=== PATIENT | male | born 1975 | race Caucasian/White ===

== ENCOUNTER 2019-06-02 15:51 | Emergency (ER) | payer BC, SELFPAY ==
--- NOTE | 2019-06-02 16:34 | RAD REPORT ---
EXAM DESCRIPTION: CT - Thorax Wo Con CLINICAL HISTORY: Chest pain PAIN COMPARISON: No comparisons FINDINGS: The lungs are clear. No pleural thickening or pleural effusion. No pneumothorax. No axillary, mediastinal or hilar adenopathy. No concerning bony finding. No gross upper abdominal finding. All CT scans are performed using dose optimization technique as appropriate and may include automated exposure control or mA/KV adjustment according to patient size. IMPRESSION: No acute abnormality detected.
--- NOTE | 2019-06-02 16:42 | EDPHYS ---
Physician Documentation [facility] Name: Zachary Parker Jr Age: 43 yrs Sex: Male : 1975 Arrival Date: 06/02/2019 Time: 15:53 Bed 18 Private MD: ED Physician Kurt Crockett HPI: 06/01 16:16 This 43 yrs old Male presents to ER via Ambulatory with complaints of Finger jr8 injury, chest injury. 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 Sparing partner fell on left rib cage. [place] multiple pops. Has had pain to chest with shortness of breath since incident. Stated that he reduced finger before he arrived to ED and feels much better there . Onset: The symptoms/episode began/occurred acutely, today. Severity of symptoms: At their worst the symptoms were moderate in the emergency department the symptoms are unchanged. The patient has not experienced similar symptoms in the past. The patient has not recently seen a physician. Historical: - Allergies: 16:17 No Known Allergies; - Home Meds: 16:17 Metformin Oral [Active]; pravastatin oral oral [Active]; Amitriptyline Oral [Active]; - PMHx: 16:17 Diabetes - NIDDM; High Cholesterol; Hypertension; PTSD; Restless Leg; - Immunization history:: Adult Immunizations up to date. - Social history:: Smoking status: Patient/guardian denies using. ROS: 16:16 Eyes: Negative for injury, pain, redness, and discharge, ENT: Negative for injury, jr8 pain, and discharge, Neck: Negative for injury, pain, and swelling, Abdomen/GI: Negative for abdominal pain, nausea, vomiting, diarrhea, and constipation, Back: Negative for injury and pain, Skin: Negative for injury, rash, and discoloration, Neuro: Negative for headache, weakness, numbness, tingling, and seizure. 16:16 Cardiovascular: Positive for chest pain, with movement, Negative for edema, orthopnea, palpitations, paroxysmal nocturnal dyspnea. 16:16 Respiratory: Positive for shortness of breath, Negative for cough, dyspnea on exertion, sputum production, wheezing. 16:16 MS/extremity: Positive for deformity, of the right 5th digit . Exam: 16:16 Eyes: Pupils equal round and reactive to light, extra-ocular motions intact. Lids and jr8 lashes normal. Conjunctiva and sclera are non-icteric and not injected. Cornea within normal limits. Periorbital areas with no swelling, redness, or edema. ENT: Nares patent. No nasal discharge, no septal abnormalities noted. Tympanic membranes are normal and external auditory canals are clear. Oropharynx with no redness, swelling, or masses, exudates, or evidence of obstruction, uvula midline. Mucous membranes moist. Neck: Trachea midline, no thyromegaly or masses palpated, and no cervical lymphadenopathy. Supple, full range of motion without nuchal rigidity, or vertebral point tenderness. No Meningismus. Cardiovascular: Regular rate and rhythm with a normal S1 and S2. No gallops, murmurs, or rubs. Normal PMI, no JVD. No pulse deficits. Respiratory: Lungs have equal breath sounds bilaterally, clear to auscultation and percussion. No rales, rhonchi or wheezes noted. No increased work of breathing, no retractions or nasal flaring. Abdomen/GI: Soft, non-tender, with normal bowel sounds. No distension or tympany. No guarding or rebound. No evidence of tenderness throughout. Back: No spinal tenderness. No costovertebral tenderness. Full range of motion. Skin: Warm, dry with normal turgor. Normal color with no rashes, no lesions, and no evidence of cellulitis. MS/ Extremity: Pulses equal, no cyanosis. Neurovascular intact. Full, normal range of motion. Neuro: Awake and alert, GCS 15, oriented to person, place, time, and situation. Cranial nerves II-XII grossly intact. Motor strength 5/5 in all extremities. Sensory grossly intact. Cerebellar exam normal. Normal gait. 16:16 Chest/axilla: Inspection: normal, Palpation: crepitus, is not appreciated, tenderness, that is moderate, of the left lateral anterior chest, that totally reproduces the patient's complaints. Vital Signs: 16:10 BP 157 / 94; Pulse 104; Resp 18; Temp 98.6; Pulse Ox 94% ; Weight 120.2 kg; Height 5 wh ft. 9 in. (175.26 cm); Pain 7/10; 16:10 Body Mass Index 39.13 (120.20 kg, 175.26 cm) MDM: 15:57 Patient medically screened. rn 16:41 Data reviewed: vital signs, nurses notes, radiologic studies, CT scan. Data jr8 interpreted: Pulse oximetry: on room air is 94 %. Interpretation: acceptable. Counseling: I had a detailed discussion with the patient and/or guardian regarding: the historical points, exam findings, and any diagnostic results supporting the discharge/admit diagnosis, radiology results, the need for outpatient follow up, a family practitioner, to return to the emergency department if symptoms worsen or persist or if there are any questions or concerns that arise at home. 06/01 16:04 Order name: CT Chest Wo Con; Complete Time: 17:24 jr8 Administered Medications: 16:59 Drug: TORadol 30 mg Route: IM; Site: right deltoid; 17:09 Follow up: Response: No adverse reaction; Pain is decreased Disposition: 17:19 Co-signature as Attending Physician, Kurt Crockett MD. rn Disposition: 06/02/19 16:41 Discharged to Home. Impression: Chest Wall Contusion . - Condition is Stable. - Discharge Instructions: Chest Wall Pain, Blunt Chest Trauma. - Medication Reconciliation Form, Thank You Letter, Antibiotic Education, Prescription Opioid Use form. - Follow up: Private Physician; When: As needed; Reason: Recheck today's complaints, Continuance of care, Re-evaluation by your physician. - Problem is new. - Symptoms have improved. Signatures: Dispatcher [employer] EDKurt Cline MD MD rn Roszak, Josh, PA PA jr8 Magalisember Zanateresa Corrections: (The following items were deleted from the chart) 17: 16:41 06/02/2019 16:41 Discharged to Home. Impression: Chest Wall Contusion . Condition wh is Stable. Forms are Medication Reconciliation Form, Thank You Letter, Antibiotic Education, Prescription Opioid Use. Follow up: Private Physician; When: As needed; Reason: Recheck today's complaints, Continuance of care, Re-evaluation by your physician. Problem is new. Symptoms have improved. jr8
--- NOTE | 2019-06-02 16:42 | ER ---
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 Pt had right 5th finger dislocation but was able to manipulate for reduction. Pt C/O left rib pain that is sharp and exacerbated by breathing. Coronavirus screen: The patient has NOT traveled to a country currently being monitored by the [facility] within the last 14 days. Ebola Screen: Patient negative for fever greater than or equal to 101.5 degrees Fahrenheit, and additional compatible Ebola Virus Disease symptoms Patient denies exposure to infectious person. Initial Sepsis Screen: Does the patient meet any 2 criteria? HR > 90 bpm. Does the patient have a suspected source of infection? No. Patient's initial sepsis screen is negative. Risk Assessment: Do you want to hurt yourself or someone else? Patient reports no desire to harm self or others. 16:10 Method Of Arrival: Ambulatory 16:10 Acuity: DOROTHEA 4 16:19 Onset of symptoms was June 02, 2019. Historical: - Allergies: 16:17 No Known Allergies; - Home Meds: 16:17 Metformin Oral [Active]; pravastatin oral oral [Active]; Amitriptyline Oral [Active]; - PMHx: 16:17 Diabetes - NIDDM; High Cholesterol; Hypertension; PTSD; Restless Leg; - Immunization history:: Adult Immunizations up to date. - Social history:: Smoking status: Patient/guardian denies using. Screenin:14 Abuse screen: Denies threats or abuse. Denies injuries from another. Nutritional screening: No deficits noted. Tuberculosis screening: No symptoms or risk factors identified. Fall Risk None identified. Assessment: 16:14 General: Appears in no apparent distress. Behavior is calm, cooperative, appropriate for age. Pain: Complains of pain in left lateral anterior chest Pain does not radiate. Pain currently is 8 out of 10 on a pain scale. Quality of pain is described as sharp, Pain began 1 hour ago. Neuro: Level of Consciousness is awake, alert, obeys commands, Oriented to person, place, time, situation, Appropriate for age. Cardiovascular: Heart tones S1 S2. Respiratory: Airway is patent Respiratory effort is even, unlabored, Breath sounds are clear bilaterally. GI: Abdomen is flat, non-distended. : No signs and/or symptoms were reported regarding the genitourinary system. EENT: No signs and/or symptoms were reported regarding the EENT system. Derm: Skin is intact, is healthy with good turgor, Skin is pink, warm \T\ dry. normal. Musculoskeletal: Circulation, motion, and sensation intact. Vital Signs: 16:10 BP 157 / 94; Pulse 104; Resp 18; Temp 98.6; Pulse Ox 94% ; Weight 120.2 kg; Height 5 wh ft. 9 in. (175.26 cm); Pain 7/10; 16:10 Body Mass Index 39.13 (120.20 kg, 175.26 cm) ED Course: 15:53 Patient arrived in ED. ag5 15:56 Srini Jose is Primary Nurse. 15:57 Kurt Crockett MD is Attending Physician. rn 15:58 Chevy Du PA is PHCP. [facility] 16:14 Triage completed. 16:15 Arm band placed on right wrist. 16:19 Patient has correct armband on for positive identification. Bed in low position. Call light in reach. Side rails up X 1. Pulse ox on. NIBP on. 16:24 CT Chest Wo Con In Process Unspecified. EDMS 16:59 No provider procedures requiring assistance completed. Patient did not have IV access during this emergency room visit. Administered Medications: 16:59 Drug: TORadol 30 mg Route: IM; Site: right deltoid; 17:09 Follow up: Response: No adverse reaction; Pain is decreased Outcome: 16:41 Discharge ordered by MD. bowden 16:59 Discharged to home ambulatory. 16:59 Condition: stable 16:59 Discharge instructions given to patient, Instructed on discharge instructions, follow up and referral plans. POC Demonstrated understanding of instructions, follow-up care, POC 17:10 Patient left the ED. Signatures: Dispatcher [employer] EDMS Kurt Crockett MD MD rn Roszak, Josh, PA PA jr8 [place], Winsy wh Fabian, Soo ag5
[2019-06-02] MEDS ORDERED: KETOROLAC 30 MG/ML INJ ONE (17:00)
[2019-06-02 17:29] VITALS: BP 157/94; TEMP 98.6; O2SAT 94
== END 2019-06-02 17:10 | disposition home or self-care (01) ==
LOC: ER 15:51
DX: S20.212A Contusion of left front wall of thorax, initial encounter (principal); W18.30XA Fall on same level, unspecified, initial encounter; Y93.89 Activity, other specified; Y92.9 Unspecified place or not applicable; Y99.0 Civilian activity done for income or pay
CPT/HCPCS: 71250; 96372; 99283

== ENCOUNTER 2019-07-17 15:02 | Emergency (ER) | payer SELFPAY ==
--- NOTE | 2019-07-17 16:19 | RAD REPORT ---
EXAM DESCRIPTION: CT - Head Brain Wo Cont - 07/17/2019 3:56 pm CLINICAL HISTORY: HEADACHE, hypertension COMPARISON: No comparisons TECHNIQUE: Axial 5 mm thick images of the head were obtained without IV contrast. All CT scans are performed using dose optimization technique as appropriate and may include automated exposure control or mA/KV adjustment according to patient size. FINDINGS: No intracranial hemorrhage, mass, edema or shift of mid-line structures. No acute infarcti on changes seen. No abnormal extra-axial fluid collections. Ventricles are normal. Mastoid air cells and visualized portions of the paranasal sinuses are clear. No acute bony findings. IMPRESSION: Negative non-contrast CT head examination.
[2019-07-17] MEDS ORDERED: METOCLOPRAMIDE 10 MG/2mL INJ ONE (16:45)
[2019-07-17] MEDS ORDERED: KETOROLAC 30 MG/ML INJ ONE (16:45)
[2019-07-17] MEDS ORDERED: DIPHENHYDRAMINE 50 MG/ML VIAL ONE (16:45)
[2019-07-17] MEDS ORDERED: NA CHLORIDE 0.9% 1,000 ML ONE (16:46)
--- NOTE | 2019-07-17 17:35 | ER ---
Nurse's Notes [facility] Name: Zachary Parker Jr Age: 43 yrs Sex: Male : 1975 Arrival Date: 07/17/2019 Time: 15:04 Bed 18 Private MD: Diagnosis: Essential (primary) hypertension;Headache Presentation: 07/16 15:05 Chief complaint: Patient states: HTN x 2 days ago that has been higher than normal. sv Reports SBP 200s. Coronavirus screen: Proceed with normal triage. Patient denies a cough. Patient denies shortness of breath or difficulty breathing. Patient denies measured and/or subjective temperature greater than 100.4F prior to today's visit. Patient denies travel on a cruise ship or to a country the [facility] currently lists as an affected area. Patient denies contact with known and/or suspected case of COVID-19. Ebola Screen: No symptoms or risks identified at this time. Risk Assessment: Do you want to hurt yourself or someone else? Patient reports no desire to harm self or others. Onset of symptoms was July 15, 2019. 15:05 Method Of Arrival: Ambulatory sv 15:05 Acuity: DOROTHEA 4 sv 15:07 Initial Sepsis Screen: Does the patient meet any 2 criteria? HR > 90 bpm. No. Patient's sv initial sepsis screen is negative. Does the patient have a suspected source of infection? No. Patient's initial sepsis screen is negative. Triage Assessment: 15:09 General: Appears in no apparent distress. comfortable, Behavior is calm, cooperative, sv appropriate for age. Pain: Denies pain. Neuro: Level of Consciousness is awake, alert, obeys commands, Oriented to person, place, time, situation, Gait is steady. Respiratory: Respiratory effort is even, unlabored. Historical: - Allergies: 15:07 No Known Allergies; sv - Home Meds: 15:07 Amitriptyline Oral [Active]; Metformin Oral [Active]; Lisinopril Oral [Active]; sv - PMHx: 15:07 Diabetes - NIDDM; High Cholesterol; Hypertension; PTSD; restless leg; sv - Immunization history:: Flu vaccine is not up to date. - Social history:: Smoking status: Patient denies any tobacco usage or history of. Screenin:10 Abuse screen: Denies threats or abuse. Denies injuries from another. Nutritional bp screening: No deficits noted. Tuberculosis screening: No symptoms or risk factors identified. Fall Risk None identified. Assessment: 15:10 General: SEE TRIAGE NOTE. bp 16:30 Reassessment: IVF INFUSING. VS STABLE ON MONITOR. bp 17:41 Reassessment: D/C ON HOLD FOR IVF COMPLETION. bp 18:15 Reassessment: PT D/C HOME AMBULATORY, DX WITH HTN AND HEADACHE. bp Vital Signs: 15:07 BP 168 / 102; Pulse 107; Resp 18; Temp 97; Pulse Ox 97% ; sv 15:29 BP 160 / 91 RA (/lg); Pulse 99; Resp 18; Pulse Ox 98% on R/A; jp3 16:45 BP 153 / 96; Pulse 94; Resp 16; Pulse Ox 97% ; bp 17:50 BP 158 / 100; Pulse 89; Pulse Ox 98% on R/A; jp3 18:15 BP 164 / 94; Pulse 91; Resp 16; Pulse Ox 97% ; bp ED Course: 15:04 Patient arrived in ED. mr 15:06 Triage completed. sv 15:07 Vicki Peterson, HUSAM [facility]. kb 15:07 Richard Carroll DO is Attending Physician. kb 15:07 Arm band placed on. sv 15:23 David Curiel, RN is Primary Nurse. bp 15:28 Bed in low position. Call light in reach. Side rails up X 1. Cool cloth applied. Verbal jp3 reassurance given. Pulse ox on. NIBP on. 15:28 Patient maintains SpO2 saturation greater than 95% on room air. jp3 15:57 CT Head Brain wo Cont In Process Unspecified. EDMS 16:35 EKG done, by ED staff, reviewed by Vicki WEINER. jp3 16:46 Inserted saline lock: 20 gauge in left antecubital area, using aseptic technique. bp Administered Medications: 15:41 Not Given (Physician Discretion): Ibuprofen 600 mg PO once kb 16:30 Drug: NS 0.9% 1000 ml Route: IV; Rate: 1000 ml; Site: left antecubital; bp 18:18 Follow up: IV Status: Completed infusion; IV Intake: 1000ml bp 16:30 Drug: Reglan 10 mg Route: IVP; Site: left antecubital; bp 18:17 Follow up: Response: Pain is decreased bp 16:30 Drug: Benadryl 12.5 mg Route: IVP; Site: left antecubital; bp 18:17 Follow up: Response: Pain is decreased bp 16:30 Drug: TORadol - Ketorolac 15 mg Route: IVP; Site: left antecubital; bp 18:17 Follow up: Response: Pain is decreased bp Intake: 18:18 IV: 1000ml; Total: 1000ml. bp Outcome: 17:33 Discharge ordered by kb 18:18 Patient left the ED. bp Signatures: Dispatcher [employer] EDMS Vicki Peterson, ARRONC PATROL LADY-Priscilla Shea RN RN Abbey Huerta Brian, GENNY RN Beltran Hamm jp3 Corrections: (The following items were deleted from the chart) 15:10 15:07 Pulse 107bpm; Resp 18bpm; Pulse Ox 97%; Temp 97F; sv sv
--- NOTE | 2019-07-17 17:35 | EDPHYS ---
Physician Documentation [facility] Name: Zachary Parker Jr Age: 43 yrs Sex: Male : 1975 Arrival Date: 07/17/2019 Time: 15:04 Bed 18 Private MD: ED Physician Richard Carroll HPI: 07/16 15:43 This 43 yrs old Male presents to ER via Ambulatory with complaints of High kb Blood Pressure. 15:43 The patient has elevated blood pressure and discovered this at home, with a home kb device. Onset: The symptoms/episode began/occurred 1 week(s) ago. Associated signs and symptoms: Pertinent positives: headache, Pertinent negatives: chest pain, dizziness, dyspnea, lightheadedness, nausea, visual changes, vomiting, weakness. Severity of symptoms: At its worst the blood pressure was 208 mm Hg. The patient has experienced similar episodes in the past. The patient has not recently seen a physician. Pt reports his blood pressure has been high for a week. States he used to take blood pressure medication, but was able to get off of it a year ago because he started swimming every other day. He started having a headache like he normally does when his bp is high last week so he started checking his bp. States it was fluctuating up and down so he started his lisinopril again. Today his bp was 208 systolic so he came in to get checked out. . Historical: - Allergies: 15:07 No Known Allergies; sv - Home Meds: 15:07 Amitriptyline Oral [Active]; Metformin Oral [Active]; Lisinopril Oral [Active]; sv - PMHx: 15:07 Diabetes - NIDDM; High Cholesterol; Hypertension; PTSD; restless leg; sv - Immunization history:: Flu vaccine is not up to date. - Social history:: Smoking status: Patient denies any tobacco usage or history of. ROS: 17:04 Constitutional: Negative for fever, chills, and weight loss, Neck: Negative for injury, kb pain, and swelling, Cardiovascular: Negative for chest pain, palpitations, and edema, Respiratory: Negative for shortness of breath, cough, wheezing, and pleuritic chest pain, Abdomen/GI: Negative for abdominal pain, nausea, vomiting, diarrhea, and constipation, Back: Negative for injury and pain, MS/Extremity: Negative for injury and deformity, Skin: Negative for injury, rash, and discoloration. 17:04 Neuro: Positive for headache. Exam: 17:04 Constitutional: This is a well developed, well nourished patient who is awake, alert, kb and in no acute distress. Head/Face: Normocephalic, atraumatic. Eyes: Pupils equal round and reactive to light, extra-ocular motions intact. Lids and lashes normal. Conjunctiva and sclera are non-icteric and not injected. Cornea within normal limits. Periorbital areas with no swelling, redness, or edema. ENT: Nares patent. No nasal discharge, no septal abnormalities noted. Tympanic membranes are normal and external auditory canals are clear. Oropharynx with no redness, swelling, or masses, exudates, or evidence of obstruction, uvula midline. Mucous membranes moist. Neck: Trachea midline, no thyromegaly or masses palpated, and no cervical lymphadenopathy. Supple, full range of motion without nuchal rigidity, or vertebral point tenderness. No Meningismus. Chest/axilla: Normal chest wall appearance and motion. Nontender with no deformity. No lesions are appreciated. Cardiovascular: Regular rate and rhythm with a normal S1 and S2. No gallops, murmurs, or rubs. Normal PMI, no JVD. No pulse deficits. Respiratory: Lungs have equal breath sounds bilaterally, clear to auscultation and percussion. No rales, rhonchi or wheezes noted. No increased work of breathing, no retractions or nasal flaring. Abdomen/GI: Soft, non-tender, with normal bowel sounds. No distension or tympany. No guarding or rebound. No evidence of tenderness throughout. Skin: Warm, dry with normal turgor. Normal color with no rashes, no lesions, and no evidence of cellulitis. MS/ Extremity: Pulses equal, no cyanosis. Neurovascular intact. Full, normal range of motion. Neuro: Awake and alert, GCS 15, oriented to person, place, time, and situation. Cranial nerves II-XII grossly intact. Motor strength 5/5 in all extremities. Sensory grossly intact. Cerebellar exam normal. Normal gait. 17:04 ECG was reviewed by the Attending Physician. Vital Signs: 15:07 BP 168 / 102; Pulse 107; Resp 18; Temp 97; Pulse Ox 97% ; sv 15:29 BP 160 / 91 RA (/lg); Pulse 99; Resp 18; Pulse Ox 98% on R/A; jp3 16:45 BP 153 / 96; Pulse 94; Resp 16; Pulse Ox 97% ; bp 17:50 BP 158 / 100; Pulse 89; Pulse Ox 98% on R/A; jp3 18:15 BP 164 / 94; Pulse 91; Resp 16; Pulse Ox 97% ; bp MDM: 15:24 Patient medically screened. kb 16:14 Data reviewed: vital signs, nurses notes. Data interpreted: Pulse oximetry: on room air kb is 98 %. Interpretation: normal. 17:32 Counseling: I had a detailed discussion with the patient and/or guardian regarding: the kb historical points, exam findings, and any diagnostic results supporting the discharge/admit diagnosis, radiology results, the need for outpatient follow up, a family practitioner, a neurologist, to return to the emergency department if symptoms worsen or persist or if there are any questions or concerns that arise at home. ED course: Pt does not want a lumbar puncture at this time. States he will come back if symptoms persist or worsen. 07/16 15:40 Order name: CT Head Brain wo Cont; Complete Time: 16:20 kb 07/16 15:34 Order name: EKG; Complete Time: 15:35 kb 07/16 15:34 Order name: EKG - Nurse/Tech; Complete Time: 16:14 kb 07/16 16:21 Order name: IV Start; Complete Time: 16:47 kb EC:04 Rate is 93 beats/min. Rhythm is regular. QRS [place] is Normal. RI interval is normal at kb 148 msec. QRS interval is normal at 80 msec. QT interval is normal at 348 msec. Administered Medications: 15:41 Not Given (Physician Discretion): Ibuprofen 600 mg PO once kb 16:30 Drug: NS 0.9% 1000 ml Route: IV; Rate: 1000 ml; Site: left antecubital; bp 18:18 Follow up: IV Status: Completed infusion; IV Intake: 1000ml bp 16:30 Drug: Reglan 10 mg Route: IVP; Site: left antecubital; bp 18:17 Follow up: Response: Pain is decreased bp 16:30 Drug: Benadryl 12.5 mg Route: IVP; Site: left antecubital; bp 18:17 Follow up: Response: Pain is decreased bp 16:30 Drug: TORadol - Ketorolac 15 mg Route: IVP; Site: left antecubital; bp 18:17 Follow up: Response: Pain is decreased bp Disposition: 18:16 Co-signature as Attending Physician, Richard Carroll DO I agree with the assessment and ms3 plan of care. PA/DIGITAL COORDINATOR's history reviewed, patient interviewed, and examined. HPI: 43 yo male with HTN presents c/o tachycardia, HTN and BOATENG. My personal exam of patient reveals: A/O x4, PERRLA, LCTAB, abdomen soft, NTTP. CN II-XII intact, sensation intact, + strength bilateral UE and LE. I agree with assessment and care plan and confirm the diagnosis (es) above. Attestation: The patient's history, exam findings, diagnostics, and a summary of any interventions or procedures was reviewed in detail with Vicki WEINER. Disposition: 07/17/19 17:33 Discharged to Home. Impression: Essential (primary) hypertension, Headache. - Condition is Stable. - Discharge Instructions: Hypertension, [id number], General Headache Without Cause, [id number]. - Medication Reconciliation Form, Thank You Letter, Antibiotic Education, Prescription Opioid Use form. - Follow up: Emergency Department; When: As needed; Reason: Worsening of condition. Follow up: Private Physician; When: 2 - 3 days; Reason: Recheck today's complaints, Continuance of care, Re-evaluation by your physician. Signatures: Dispatcher [employer] EDIL Vicki Peterson FNP-C FNP-Ckb Verde, Stephanie, RN RN David Nolasco RN RN bp Sims, Marcus, DO DO ms3 Corrections: (The following items were deleted from the chart) 18:18 17:33 07/17/2019 17:33 Discharged to Home. Impression: Essential (primary) bp hypertension; Headache. Condition is Stable. Forms are Medication Reconciliation Form, Thank You Letter, Antibiotic Education, Prescription Opioid Use. Follow up: Emergency Department; When: As needed; Reason: Worsening of condition. Follow up: Private Physician; When: 2 - 3 days; Reason: Recheck today's complaints, Continuance of care, Re-evaluation by your physician. kb
[2019-07-17 18:44] VITALS: TEMP 97
[2019-07-17 18:48] VITALS: BP 164/94; O2SAT 97
--- NOTE | 2019-07-18 07:34 | EKG ---
Test Date: 2019-07-17 Test Time: 16:25:57 Well Puller: [place] MEASUREMENT RESULTS: Intervals: Rate: 93 MI: 148 QRSD: 80 QT: 348 QTc: 432 [place]: P: 28 MI: 148 QRS: 17 T: 34 INTERPRETIVE STATEMENTS: Normal sinus rhythm Normal ECG Compared to ECG 06/16/1999 19:19:00 T-wave abnormality no longer present Electronically Signed On 07-18-19 07:33:09 CDT by Vipin Musa
== END 2019-07-17 18:18 | disposition home or self-care (01) ==
LOC: ER 15:02
DX: I10 Essential (primary) hypertension (principal); E11.9 Type 2 diabetes mellitus without complications; E78.00 Pure hypercholesterolemia, unspecified
CPT/HCPCS: 70450; 93005; 96361; 96374; 96375; 99284; J1200; J2765; J7030

== ENCOUNTER 2020-10-13 09:53 | Emergency (ER) | payer OTHER, SELFPAY ==
--- OUTSIDE RECORDS SUMMARY | 2020-10-13 09:55 | XMS REPORT | Continuity of Care Document ---
:1975 Author Organization [facility] t Address [address] [place] [address] Care Team Providers Name Role Phone Denilson Miller Attending Clinician Problems This patient has no known problems. Allergies, Adverse Reactions, Alerts This patient has no known allergies or adverse reactions. Medications This patient has no known medications. Procedures This patient has no known procedures. Encounters Start End Encounter Admission Attending Care Care Encounter Source Date/Time Date/Time Type Type Clinicians Facility Department ID 2020-01-18 2020-01-18 Emergency [facility] [id number] 18:41:00 19:45:00 Lilibeth Multani [id number] [place] [id number] [place] [id number] Results This patient has no known results.
--- NOTE | 2020-10-13 11:42 | ER ---
Nurse's Notes [facility] Name: Zachary Parker Jr Age: 45 yrs Sex: Male : 1975 Arrival Date: 10/13/2020 Time: 09:54 Bed Waiting Private MD: Diagnosis: Debbi Presentation: 10/13 10:24 Chief complaint: Painful sores in mouth x 1 week. On amoxicillin day day 7. Coronavirus hb screen: At this time, the client does not indicate any symptoms associated with coronavirus-19. Ebola Screen: No symptoms or risks identified at this time. Initial Sepsis Screen: Does the patient meet any 2 criteria? No. Patient's initial sepsis screen is negative. Does the patient have a suspected source of infection? No. Patient's initial sepsis screen is negative. Risk Assessment: Do you want to hurt yourself or someone else? Patient reports no desire to harm self or others. Onset of symptoms was October 06, 2020. 10:24 Method Of Arrival: Ambulatory hb 10:24 Acuity: DOROTHEA 4 hb Historical: - Allergies: 10:27 No Known Allergies; hb - Home Meds: 10:27 Amitriptyline Oral [Active]; lisinopril Oral [Active]; Metformin Oral [Active]; hb pravastatin Oral [Active]; Jardiance oral [Active]; Rybelsus 3 mg oral tab [Active]; 10:28 paroxetine oral [Active]; hb - PMHx: 10:27 Diabetes - NIDDM; High Cholesterol; Hypertension; PTSD; restless leg; hb - Immunization history:: Client reports having NOT received the Covid vaccine. - Social history:: Smoking status: Patient denies any tobacco usage or history of. Screenin:31 Abuse screen: Denies threats or abuse. Denies injuries from another. Nutritional hb screening: No deficits noted. Tuberculosis screening: No symptoms or risk factors identified. Fall Risk None identified. Assessment: 11:32 Reassessment: JEANETTE Jones in triage to assess patient. hb Vital Signs: 10:24 BP 147 / 101; Pulse 88; Resp 16; Temp 98.3; Pulse Ox 100% on R/A; Weight 121.11 kg; hb Height 5 ft. 10 in. (177.80 cm); Pain 3/10; 10:24 Body Mass Index 38.31 (121.11 kg, 177.80 cm) hb ED Course: 09:54 Patient arrived in ED. rg4 10:26 Triage completed. hb 10:27 Arm band placed on. hb 10:51 Robert London PA is PHCP. [facility] 10:51 Alexy Lin MD is Attending Physician. [facility] 11:31 Patient has correct armband on for positive identification. hb 11:41 Inez Silver MD is Referral Physician. jm 11:41 Ramesh Springer DDS is Referral Physician. [facility] 11:45 No provider procedures requiring assistance completed. Patient did not have IV access hb during this emergency room visit. Administered Medications: No medications were administered Outcome: 11:41 Discharge ordered by . [facility] 11:45 Discharged to home ambulatory. hb 11:45 Condition: good 11:45 Discharge instructions given to patient, Instructed on discharge instructions, follow up and referral plans. medication usage, Demonstrated understanding of instructions, follow-up care, medications, Prescriptions given X 1. 11:46 Patient left the ED. hb Signatures: Robert London PA PA jmm Baxter, Heather, RN RN Gela Noel rg4
--- NOTE | 2020-10-13 11:42 | EDPHYS ---
Physician Documentation [facility] Name: Zachary Parker Jr Age: 45 yrs Sex: Male : 1975 Arrival Date: 10/13/2020 Time: 09:54 Bed Waiting Private MD: SAMANTHA Physician Alexy Lin HPI: 10/13 11:35 This 45 yrs old Male presents to ER via Ambulatory with complaints of Sores jmm In Mouth. 11:35 Onset: The symptoms/episode began/occurred gradually, 1 week(s) ago. Duration: The jmm symptoms are continuous. Modifying factors: The symptoms are alleviated by nothing, the symptoms are aggravated by nothing. This is a 45-year-old male with a history of diabetes mellitus, hyperlipidemia, hypertension the presents emergency department with complaints of irritation, sores in his mouth. Patient was treated with amoxicillin with no relief. Patient denies fever.. Historical: - Allergies: 10:27 No Known Allergies; hb - Home Meds: 10:27 Amitriptyline Oral [Active]; lisinopril Oral [Active]; Metformin Oral [Active]; hb pravastatin Oral [Active]; Jardiance oral [Active]; Rybelsus 3 mg oral tab [Active]; 10:28 paroxetine oral [Active]; hb - PMHx: 10:27 Diabetes - NIDDM; High Cholesterol; Hypertension; PTSD; restless leg; hb - Immunization history:: Client reports having NOT received the Covid vaccine. - Social history:: Smoking status: Patient denies any tobacco usage or history of. ROS: 11:35 Constitutional: Negative for fever, chills, and weight loss. jmm 11:35 ENT: Positive for Gum pain 11:35 All other systems are negative. Exam: 11:35 Constitutional: This is a well developed, well nourished patient who is awake, alert, jmm and in no acute distress. Head/Face: atraumatic. Eyes: EOMI, no conjunctival erythema appreciated 11:35 Neck: Trachea midline, Supple Chest/axilla: Normal chest wall appearance and motion. Cardiovascular: Regular rate and rhythm. No edema appreciated Respiratory: Normal respirations, no respiratory distress appreciated Abdomen/GI: Non distended, soft Back: Normal ROM Skin: General appearance color normal MS/ Extremity: Moves all extremities, no obvious deformities appreciated, no edema noted to the lower extremities Neuro: Awake and alert, normal gait Psych: Behavior is normal, Mood is normal, Patient is cooperative and pleasant 11:35 ENT: Erythema noted to the oral mucosa along with white patches. Vital Signs: 10:24 BP 147 / 101; Pulse 88; Resp 16; Temp 98.3; Pulse Ox 100% on R/A; Weight 121.11 kg; hb Height 5 ft. 10 in. (177.80 cm); Pain 3/10; 10:24 Body Mass Index 38.31 (121.11 kg, 177.80 cm) hb MDM: 11:35 Patient medically screened. [facility] 11:40 Data reviewed: vital signs, nurses notes. Counseling: I had a detailed discussion with [facility] the patient and/or guardian regarding: the historical points, exam findings, and any diagnostic results supporting the discharge/admit diagnosis, the need for outpatient follow up, to return to the emergency department if symptoms worsen or persist or if there are any questions or concerns that arise at home. ED course: Patient is alert and nontoxic in appearance in the ED. Physical exam concerning for Debbi albicans. Will treat with antifungal medication. Patient is otherwise advised to follow-up with ENT or oral surgery for further evaluation. Patient understood and agrees with plan of care.. Administered Medications: No medications were administered Disposition: 14:55 Co-signature as Attending Physician, Alexy Lin MD I agree with the assessment and juliana plan of care. Disposition Summary: 10/13/20 11:41 Discharge Ordered Location: Home [facility] Condition: Stable [facility] Diagnosis - Debbi [facility] Followup: [facility] - With: Inez Silver MD - When: 2 - 3 days - Reason: Recheck today's complaints, Continuance of care, Re-evaluation by your physician Followup: [facility] - With: Ramesh Springer DDS - When: 2 - 3 days - Reason: Recheck today's complaints, Continuance of care, Re-evaluation by your physician Discharge Instructions: - Discharge Summary Sheet [facility] - Oral Thrush, Adult [facility] Forms: - Medication Reconciliation Form [facility] - Thank You Letter [facility] - Antibiotic Education [facility] - Prescription Opioid Use [facility] Prescriptions: - Nystatin 100,000 unit/mL Oral Suspension - take 5 milliliters by ORAL route every 6 hours; 120 milliliter; Refills: 0, [facility] Product Selection Permitted Signatures: Alexy Lin MD MD cha Mickail, Joel, PA PA jmm Baxter, Heather, RN RN hb
[2020-10-13 11:57] VITALS: BP 147/101; TEMP 98.3; O2SAT 100
== END 2020-10-13 11:46 | disposition home or self-care (01) ==
LOC: ER 09:53
DX: B37.0 Candidal stomatitis (principal); I10 Essential (primary) hypertension; E11.9 Type 2 diabetes mellitus without complications; E78.00 Pure hypercholesterolemia, unspecified; F43.10 Post-traumatic stress disorder, unspecified
CPT/HCPCS: 99282

== ENCOUNTER 2020-12-19 13:25 | Emergency (ER) | payer OTHER ==
[2020-12-19 14:55] LABS: Absolute Lymphocytes (CBC) 2.1 K/uL (0.7-4.9); Basophils % 0.9 % (0-1.3); Hematocrit 42.5 % (39.6-49.0); MPV 8.3 fL (7.6-11.3); RBC Red Blood Cell Count 4.83 M/uL (4.33-5.43)
[2020-12-19 15:29] LABS: ALT/SGPT 80 U/L (12-78); AST/SGOT 45 U/L (15-37); Albumin 3.6 g/dL (3.4-5.0); Alkaline Phosphatase 62 U/L (45-117); BUN Blood Urea Nitrogen 14 mg/dL (7-18); Bicarbonate 28 mmol/L (21-32); Bilirubin Direct 0.1 mg/dL (0-0.2); Bilirubin Total 0.4 mg/dL (0.2-1.0); Glucose Level 274 mg/dL (74-106); Lipase 212 U/L (73-393); Protein, Total 7.2 g/dL (6.4-8.2); Sodium Level 140 mmol/L (136-145)
[2020-12-19] MEDS ORDERED: KETOROLAC 30 MG/ML INJ ONE (16:12)
[2020-12-19] MEDS ORDERED: ONDANSETRON 4 MG/2 ML VIAL ONE (16:12)
[2020-12-19] MEDS ORDERED: NA CHLORIDE 0.9% 1,000 ML ONE (16:13)
--- NOTE | 2020-12-19 16:14 | RAD REPORT ---
EXAM DESCRIPTION: CTAbdomen Pelvis W Contrast - 12/19/2020 4:03 pm CLINICAL HISTORY: Abdominal pain. ABD PAIN COMPARISON: No comparisons TECHNIQUE: Biphasic CT imaging of the abdomen and pelvis was performed with 100 ml non-ionic IV cont rast. All CT scans are performed using dose optimization technique as appropriate and may include automated exposure control or mA/KV adjustment according to patient size. FINDINGS: The lung bases are clear. The liver, spleen, pancreas, adrenal glands and kidneys are within normal limits. No bowel obstruction, free air, free fluid or abscess. Moderate stool is present in the colon. The ap pendix is normal. No evidence of significant lymphadenopathy. No suspicious bony findings. IMPRESSION: No acute intra-abdominal or pelvic finding.
[2020-12-19 16:49] LABS: Urine Blood Negative (Negative); Urine Glucose 3+ (Negative); Urine Protein Negative (Negative); Urine Specific Gravity <=1.005 (1.005-1.030)
--- NOTE | 2020-12-19 16:52 | ER ---
Nurse's Notes [facility] Name: Zachary Parker Jr Age: 45 yrs Sex: Male : 1975 Arrival Date: 12/19/2020 Time: 13:28 Bed 13 Private MD: Laquita Walter C Diagnosis: Lower abdominal pain, unspecified Presentation: 12/19 14:05 Chief complaint: Patient states: RLQ pain with nausea that began yesterday. Coronavirus aa5 screen: At this time, the client does not indicate any symptoms associated with coronavirus-19. Ebola Screen: Patient negative for fever greater than or equal to 101.5 degrees Fahrenheit, and additional compatible Ebola Virus Disease symptoms. Initial Sepsis Screen: Does the patient meet any 2 criteria? No. Patient's initial sepsis screen is negative. Does the patient have a suspected source of infection? No. Patient's initial sepsis screen is negative. Risk Assessment: Do you want to hurt yourself or someone else? Patient reports no desire to harm self or others. Onset of symptoms was November 2020. 14:05 Method Of Arrival: Ambulatory aa5 14:05 Acuity: DOROTHEA 3 aa5 Historical: - Allergies: 14:06 No Known Allergies; aa5 - PMHx: 14:06 Diabetes - NIDDM; High Cholesterol; Hypertension; PTSD; restless leg; aa5 - PSHx: 14:06 Hernia; aa5 - Immunization history:: Client reports having NOT received the Covid vaccine. - Social history:: Smoking status: Patient denies any tobacco usage or history of. Screenin:36 Abuse screen: Denies threats or abuse. Nutritional screening: No deficits noted. kg Tuberculosis screening: No symptoms or risk factors identified. Fall Risk None identified. Assessment: 16:34 General: Appears uncomfortable, Behavior is calm, cooperative, appropriate for age, kg Reports RLQ pain. Pain: Complains of pain in right lower quadrant. Vital Signs: 14:05 BP 127 / 89; Pulse 98; Resp 18 S; Temp 98.4(TE); Pulse Ox 99% on R/A; Weight 120.2 kg aa5 (R); Height 5 ft. 10 in. (177.80 cm) (R); 17:18 BP 125 / 78; Pulse 77; Resp 19; Pulse Ox 99% on R/A; kg 14:05 Body Mass Index 38.02 (120.20 kg, 177.80 cm) aa5 ED Course: 13:28 Patient arrived in ED. am2 13:29 Laquita Walter FNP is Private Physician. am2 14:05 Arm band placed on. aa5 14:06 Triage completed. aa5 14:08 Vicki Peterson FNP-C [facility]. kb 14:08 Alexy Lin MD is Attending Physician. kb 14:18 Luisa Guerra, RN is Primary Nurse. oh 14:40 Inserted saline lock: 20 gauge in right antecubital area, using aseptic technique. oh Blood collected. 16:04 CT Abd/Pelvis - IV Contrast Only In Process Unspecified. EDMS 16:35 Bed in low position. Call light in reach. kg 16:36 No provider procedures requiring assistance completed. kg 17:18 IV discontinued, bleeding controlled, Pressure dressing applied. kg Administered Medications: 15:57 Drug: NS 0.9% 1000 ml Route: IV; Rate: 1000 ml; Site: right antecubital; kg 15:57 Drug: Zofran (Ondansetron) 4 mg Route: IVP; Site: right antecubital; kg 15:57 Drug: Ketorolac 15 mg Route: IVP; Site: right antecubital; kg Outcome: 16:52 Discharge ordered by . kb 17:18 Discharged to home ambulatory. kg 17:18 Condition: good 17:18 Discharge instructions given to patient. 17:19 Patient left the ED. kg Signatures: Dispatcher [employer] EDHI Vicki Peterson FNP-C FNP-Ckb Calderon, Audri RN RN aa5 Eve Mario am2 Haley Jain RN RN kg Luisa Guerra, RN RN oh
--- NOTE | 2020-12-19 16:53 | EDPHYS ---
Physician Documentation [facility] Name: Zachary Parker Jr Age: 45 yrs Sex: Male : 1975 Arrival Date: 12/19/2020 Time: 13:28 Bed 13 Private MD: Laquita Walter C ED Physician Alexy Lin HPI: 12/19 15:44 This 45 yrs old Male presents to ER via Ambulatory with complaints of Flank kb Pain - right. 15:44 The patient presents with abdominal pain right lower quadrant. The patient has not kb experienced similar symptoms in the past. The patient has not recently seen a physician. 15:47 Onset: The symptoms/episode began/occurred yesterday. The symptoms do not radiate. kb Associated signs and symptoms: Pertinent positives: nausea, Pertinent negatives: fever. The symptoms are described as constant. Modifying factors: The symptoms are alleviated by nothing, the symptoms are aggravated by nothing. Severity of pain: At its worst the pain was moderate in the emergency department the pain is unchanged. Historical: - Allergies: 14:06 No Known Allergies; aa5 - PMHx: 14:06 Diabetes - NIDDM; High Cholesterol; Hypertension; PTSD; restless leg; aa5 - PSHx: 14:06 Hernia; aa5 - Immunization history:: Client reports having NOT received the Covid vaccine. - Social history:: Smoking status: Patient denies any tobacco usage or history of. ROS: 15:41 Constitutional: Negative for fever, chills, and weight loss. kb 15:41 Abdomen/GI: Positive for abdominal pain, nausea, Negative for vomiting, diarrhea. 15:41 All other systems are negative. Exam: 15:42 Constitutional: This is a well developed, well nourished patient who is awake, alert, kb and in no acute distress. Head/Face: Normocephalic, atraumatic. ENT: Moist Mucous membranes Respiratory: Respirations even and unlabored. No increased work of breathing, no retractions or nasal flaring. Skin: Warm, dry with normal turgor. Normal color. MS/ Extremity: Pulses equal, no cyanosis. Neurovascular intact. Full, normal range of motion. Neuro: Awake and alert, GCS 15, oriented to person, place, time, and situation. Moves all extremities. Normal gait. Psych: Awake, alert, with orientation to person, place and time. Behavior, mood, and affect are within normal limits. 15:42 Abdomen/GI: Inspection: abdomen appears normal, Bowel sounds: normal, in all quadrants, Palpation: soft, mild abdominal tenderness, in the right lower quadrant. Vital Signs: 14:05 BP 127 / 89; Pulse 98; Resp 18 S; Temp 98.4(TE); Pulse Ox 99% on R/A; Weight 120.2 kg aa5 (R); Height 5 ft. 10 in. (177.80 cm) (R); 17:18 BP 125 / 78; Pulse 77; Resp 19; Pulse Ox 99% on R/A; kg 14:05 Body Mass Index 38.02 (120.20 kg, 177.80 cm) aa5 MDM: 14:08 Patient medically screened. kb 15:41 Data reviewed: vital signs, nurses notes. Data interpreted: Pulse oximetry: on room air kb is 99 %. Interpretation: normal. 16:51 Counseling: I had a detailed discussion with the patient and/or guardian regarding: the kb historical points, exam findings, and any diagnostic results supporting the discharge/admit diagnosis, lab results, radiology results, the need for outpatient follow up, a family practitioner, to return to the emergency department if symptoms worsen or persist or if there are any questions or concerns that arise at home. 12/19 14:22 Order name: Basic Metabolic Panel; Complete Time: 15:34 kb 12/19 14:22 Order name: CBC with Diff; Complete Time: 15:07 kb 12/19 14:22 Order name: Hepatic Function; Complete Time: 15:34 kb 12/19 14:22 Order name: Lipase; Complete Time: 15:34 kb 12/19 14:22 Order name: CT Abd/Pelvis - IV Contrast Only; Complete Time: 16:19 kb 12/19 16:49 Order name: Urine Dipstick-Ancillary; Complete Time: 16:50 EDMS 12/19 14:22 Order name: IV Saline Lock; Complete Time: 14:40 kb 12/19 14:22 Order name: Labs collected and sent; Complete Time: 14:40 kb 12/19 16:19 Order name: Urine Dipstick-Ancillary (obtain specimen); Complete Time: 16:51 kb Administered Medications: 15:57 Drug: NS 0.9% 1000 ml Route: IV; Rate: 1000 ml; Site: right antecubital; kg 15:57 Drug: Zofran (Ondansetron) 4 mg Route: IVP; Site: right antecubital; kg 15:57 Drug: Ketorolac 15 mg Route: IVP; Site: right antecubital; kg Disposition: 12/20 05:53 Co-signature as Attending Physician, Alexy Lin MD I agree with the assessment and juliana plan of care. Disposition Summary: 12/19/20 16:52 Discharge Ordered Location: Home kb Condition: Stable kb Diagnosis - Lower abdominal pain, unspecified kb Followup: kb - With: Emergency Department - When: As needed - Reason: Worsening of condition Followup: kb - With: Private Physician - When: 2 - 3 days - Reason: Recheck today's complaints, Continuance of care, Re-evaluation by your physician Discharge Instructions: - Discharge Summary Sheet kb - Abdominal Pain, Adult, [id number] kb Forms: - Medication Reconciliation Form kb - Thank You Letter kb - Antibiotic Education kb - Prescription Opioid Use kb Prescriptions: - Zofran 4 mg Oral Tablet - take 1 tablet by ORAL route every 6 hours As needed; 20 tablet; Refills: 0, kb Product Selection Permitted - Diclofenac Sodium 75 mg Oral tablet,delayed release (DR/EC) - take 1 tablet by ORAL route 2 times per day As needed; 30 tablet; Refills: 0, kb Product Selection Permitted Signatures: Dispatcher [employer] Vicki Bansal FNP-C FNP-Alexy Abebe MD MD cha Calderon, Audri, RN RN aa5 Haley Jain RN RN kg
[2020-12-20 04:23] VITALS: TEMP 98.4; O2SAT 99
[2020-12-20 04:25] VITALS: BP 125/78
== END 2020-12-19 17:19 | disposition home or self-care (01) ==
LOC: ER 13:25
DX: R10.31 Right lower quadrant pain (principal); I10 Essential (primary) hypertension; E11.9 Type 2 diabetes mellitus without complications
CPT/HCPCS: 85025; 80048; 36415; 80076; 81003; 83690; 74177; 96375; 96374; 99284; Q9967; J7030; J2405

== ENCOUNTER 2021-01-03 18:56 | Emergency (ER) | payer OTHER ==
--- NOTE | 2021-01-03 20:59 | ER ---
Nurse's Notes [facility] Name: Zachary Parker Jr Age: 45 yrs Sex: Male : 1975 Arrival Date: 01/03/2021 Time: 19:01 Bed 12 Private MD: Diagnosis: Coronavirus infection, unspecified Presentation: 01/03 19:28 Chief complaint: Patient states: cough, sore throat, itchy eyes and ears, loss of taste ld1 and smell, neck pain and headache X 2-3 days. Coronavirus screen: Client presents with at least one sign or symptom that may indicate coronavirus-19. Standard/surgical mask placed on the client. Ebola Screen: No symptoms or risks identified at this time. Initial Sepsis Screen: Does the patient meet any 2 criteria? No. Patient's initial sepsis screen is negative. Does the patient have a suspected source of infection? No. Patient's initial sepsis screen is negative. Risk Assessment: Do you want to hurt yourself or someone else? Patient reports no desire to harm self or others. Onset of symptoms was January 03, 2021 at 19:30. 19:28 Method Of Arrival: Ambulatory ld1 19:28 Acuity: DOROTHEA 3 ld1 Triage Assessment: 19:32 General: Appears in no apparent distress. comfortable, Behavior is calm, cooperative, ld1 appropriate for age. Pain: Denies pain. EENT: Throat is pink Reports sore/itchy throat. Neuro: Level of Consciousness is awake, alert, obeys commands, Oriented to person, place, time, situation. Cardiovascular: Capillary refill < 3 seconds Patient's skin is warm and dry. Respiratory: Airway is patent Respiratory effort is even, unlabored, Respiratory pattern is regular, symmetrical. GI: Abdomen is flat, non-distended. : No signs and/or symptoms were reported regarding the genitourinary system. Derm: No signs and/or symptoms reported regarding the dermatologic system. Musculoskeletal: Reports stiff neck. Historical: - Allergies: 19:30 No Known Allergies; ld1 - Home Meds: 19:30 pravastatin oral [Active]; ld1 19:31 ProAir HFA 90 mcg/actuation inhalation HFAA 1 puff every 4 hours [Active]; ld1 19:32 amitriptyline Oral [Active]; Metformin Oral [Active]; paroxetine oral [Active]; ld1 - PMHx: 19:30 Diabetes - NIDDM; High Cholesterol; Hypertension; PTSD; restless leg; ld1 19:31 Asthma; ld1 - PSHx: 19:30 hernia; ld1 - Immunization history:: Adult Immunizations not up to date, Client reports having NOT received the Covid vaccine. - Social history:: Smoking status: Patient denies any tobacco usage or history of. Screenin:34 Abuse screen: Denies threats or abuse. Denies injuries from another. Nutritional ld1 screening: No deficits noted. Tuberculosis screening: No symptoms or risk factors identified. Fall Risk None identified. Assessment: 19:34 Reassessment: See triage assessment. Respiratory: Airway is patent Respiratory effort ld1 is even, unlabored, Respiratory pattern is regular, symmetrical, Breath sounds are clear bilaterally. Vital Signs: 19:28 BP 123 / 83; Pulse 119; Resp 18; Temp 99.7(O); Pulse Ox 96% on R/A; Weight 95.25 kg; ld1 Height 5 ft. 10 in. (177.80 cm); Pain 0/10; 21:29 BP 129 / 80; Pulse 108; Resp 18; Pulse Ox 97% on R/A; ld1 19:28 Body Mass Index 30.13 (95.25 kg, 177.80 cm) ld1 ED Course: 19:01 Patient arrived in ED. mr 19:20 Vicki Peterson, [facility] kb 19:20 Moisés Rush MD is Attending Physician. kb 19:20 Alexy Lin MD is Attending Physician. kb 19:30 Triage completed. ld1 19:32 Arm band placed on right wrist. ld1 19:34 Patient has correct armband on for positive identification. Bed in low position. Call ld1 light in reach. Side rails up X2. Pulse ox on. NIBP on. Door closed. Noise minimized. Warm blanket given. 19:34 No provider procedures requiring assistance completed. ld1 19:59 SARS-COV-2 RT PCR Sent. ld1 19:59 Strep Sent. ld1 19:59 Flu Sent. ld1 21:30 Patient did not have IV access during this emergency room visit. ld1 Administered Medications: No medications were administered Outcome: 20:58 Discharge ordered by . kb 21:30 Discharged to home ambulatory. ld1 21:30 Condition: stable 21:30 Discharge instructions given to patient, Instructed on discharge instructions, follow up and referral plans. Demonstrated understanding of instructions, follow-up care. 21:30 Patient left the ED. ld1 Signatures: Vicki Peterson, HYDRO OPERATOR-C HYDRO OPERATOR-Abbey Urrutia mr RandiGeri pabon, RN RN ld1
--- NOTE | 2021-01-03 20:59 | EDPHYS ---
Physician Documentation [facility] Name: Zachary Parker Jr Age: 45 yrs Sex: Male : 1975 Arrival Date: 01/03/2021 Time: 19:01 Bed 12 Private MD: ED Physician Alexy Lin HPI: 01/03 21:19 This 45 yrs old Male presents to ER via Ambulatory with complaints of Cough, kb Sore Throat, Headache. 21:19 The patient or guardian reports cough, that is intermittent, described as mild, with no kb sputum, flu symptoms, myalgias. Onset: The symptoms/episode began/occurred yesterday. Severity of symptoms: At their worst the symptoms were moderate, in the emergency department the symptoms are unchanged. Modifying factors: The symptoms are alleviated by nothing, the symptoms are aggravated by nothing. Associated signs and symptoms: Pertinent positives: sore throat. The patient has not experienced similar symptoms in the past. The patient has not recently seen a physician. Pt reports cough, sore throat, decreased taste and smell, malaise and fatigue since yesterday. . Historical: - Allergies: 19:30 No Known Allergies; ld1 - Home Meds: 19:30 pravastatin oral [Active]; ld1 19:31 ProAir HFA 90 mcg/actuation inhalation HFAA 1 puff every 4 hours [Active]; ld1 19:32 amitriptyline Oral [Active]; Metformin Oral [Active]; paroxetine oral [Active]; ld1 - PMHx: 19:30 Diabetes - NIDDM; High Cholesterol; Hypertension; PTSD; restless leg; ld1 19:31 Asthma; ld1 - PSHx: 19:30 hernia; ld1 - Immunization history:: Adult Immunizations not up to date, Client reports having NOT received the Covid vaccine. - Social history:: Smoking status: Patient denies any tobacco usage or history of. ROS: 21:21 Cardiovascular: Negative for chest pain, palpitations, and edema. kb 21:21 Constitutional: Positive for fatigue, malaise. 21:21 ENT: Positive for sore throat, decreased taste and smell. 21:21 Respiratory: Positive for cough, Negative for dyspnea on exertion, hemoptysis, orthopnea, pleurisy, shortness of breath, sputum production, wheezing. 21:21 Neuro: Positive for headache. 21:21 All other systems are negative. Exam: 21:21 Constitutional: This is a well developed, well nourished patient who is awake, alert, kb and in no acute distress. Head/Face: Normocephalic, atraumatic. ENT: Moist Mucous membranes Respiratory: Respirations even and unlabored. No increased work of breathing, no retractions or nasal flaring. Skin: Warm, dry with normal turgor. Normal color. MS/ Extremity: Pulses equal, no cyanosis. Neurovascular intact. Full, normal range of motion. Neuro: Awake and alert, GCS 15, oriented to person, place, time, and situation. Moves all extremities. Normal gait. Psych: Awake, alert, with orientation to person, place and time. Behavior, mood, and affect are within normal limits. Vital Signs: 19:28 BP 123 / 83; Pulse 119; Resp 18; Temp 99.7(O); Pulse Ox 96% on R/A; Weight 95.25 kg; ld1 Height 5 ft. 10 in. (177.80 cm); Pain 0/10; 21:29 BP 129 / 80; Pulse 108; Resp 18; Pulse Ox 97% on R/A; ld1 19:28 Body Mass Index 30.13 (95.25 kg, 177.80 cm) ld1 MDM: 19:20 Patient medically screened. kb 20:58 Data reviewed: vital signs, nurses notes. Data interpreted: Pulse oximetry: on room air kb is 96 %. Interpretation: normal. Counseling: I had a detailed discussion with the patient and/or guardian regarding: the historical points, exam findings, and any diagnostic results supporting the discharge/admit diagnosis, lab results, the need for outpatient follow up, a family practitioner, to return to the emergency department if symptoms worsen or persist or if there are any questions or concerns that arise at home. ED course: [place] offered. Pt declined. 01/03 19:22 Order name: Flu; Complete Time: 20:20 kb 01/03 19:22 Order name: Strep; Complete Time: 20:16 kb 01/03 19:47 Order name: SARS-COV-2 RT PCR; Complete Time: 20:52 EDMS 01/03 20:17 Order name: Throat Culture EDMS Administered Medications: No medications were administered Disposition: 22:51 Co-signature as Attending Physician, Alexy Lin MD I agree with the assessment and juliana plan of care. Disposition Summary: 01/03/21 20:58 Discharge Ordered Location: Home kb Condition: Stable kb Diagnosis - Coronavirus infection, unspecified kb Followup: kb - With: Emergency Department - When: As needed - Reason: Worsening of condition Followup: kb - With: Private Physician - When: 2 - 3 days - Reason: Recheck today's complaints, Continuance of care, Re-evaluation by your physician Discharge Instructions: - Discharge Summary Sheet kb - COVID-19 kb - COVID-19 Frequently Asked Questions kb - 10 Things You Can Do to Manage Your COVID-19 Symptoms at Home - [facility] kb Forms: - Medication Reconciliation Form kb - Thank You Letter kb - Antibiotic Education kb - Prescription Opioid Use kb Signatures: Dispatcher [employer] EDMS Vicki Peterson, EARTH SCIENCE PROFESSOR-C EARTH SCIENCE PROFESSOR-Alexy Abebe MD MD cha Dibbern, Lauren, RN RN ld1 Corrections: (The following items were deleted from the chart) 19:47 19:22 CORONAVIRUS+[id number] ordered. EDMN EDMN
[2021-01-03 22:09] VITALS: TEMP 99.7
[2021-01-03 22:10] VITALS: BP 129/80; O2SAT 97
== END 2021-01-03 21:30 | disposition home or self-care (01) ==
LOC: ER 18:56
DX: U07.1 COVID-19 (principal); I10 Essential (primary) hypertension; E11.9 Type 2 diabetes mellitus without complications; J45.909 Unspecified asthma, uncomplicated
CPT/HCPCS: 87070; 87081; 87804 ×2; 99283; U0003

== ENCOUNTER 2022-05-21 18:54 | Emergency (ER) | payer OTHER ==
--- OUTSIDE RECORDS SUMMARY | 2022-05-21 18:57 | XMS REPORT | Continuity of Care Document ---
:1975 Author Organization [facility] t Address [address] [place] [id number] Care Team Providers Name Role Phone FLAKITO SOLIS Primary Care Physician Unavailable GERSON VALENZUELA Attending Clinician Unavailable Gerson Valenzuela MD Attending Clinician , Adc Surg Spec Procedure Attending Clinician Unavailable Doctor Unassigned, [place] Attending Clinician Unavailable Cordelia Ace RN Attending Clinician Unavailable Vaccine, Ang Db Cbc Fam Attending Clinician Unavailable Chucky Abreu MD Attending Clinician CHUCKY ABREU Attending Clinician Unavailable Nurse, [facility] Attending Clinician Unavailable Susanne Hill RN Attending Clinician Unavailable Only, Ang Kiran Test Attending Clinician Unavailable Alejandro Jones Attending Clinician Lilibeth Miller Attending Clinician Payers Payer Name Policy Type Policy Number Effective Date Expiration Date S [facility] [id number] 2014 00:00:00 [facility] [id number] 2020 CHOICE [place] 00:00:00 Problems Condition Condition Condition Status Onset Resolution Last Treating Co mments Source Name Details Category Date Date Treatment Clinician Date No known No known Disease Unive rs active active ity of problems problems [facility] Allergies, Adverse Reactions, Alerts Allergy Allergy Status Severity Reaction(s) Onset Inactive Treating Comm ents Source Name Type Date Date Clinician NO KNOWN Drug Active Univers ALLERGIE Class ity of S [facility] Social History Social Habit Start Date Stop Date Quantity Comments Source Exposure to 2021-11-27 2021-12-07 Not sure [facility] SARS-CoV-2 (event) 00:00:00 12:55:00 [facility] Cigarettes smoked 2016-08-22 2016-08-22 Univers ity of current (pack per 00:00:00 00:00:00 ) - Reported Branch History of tobacco 2012-11-04 Cigarette Smoker University of use 00:00:00 [facility] Sex Ass[birth year] At [birth year] Universit y of 00:00:00 00:00:00 [facility] Smoking Status Start Date Stop Date Source Ex-smoker 2016-08-22 00:00:00 2016-08-22 00:00:00 [facility] Medications Ordered Filled Start Stop Current Ordering Indication Dosage Frequency Signature Comments Components Source Medication Medication Date Date Medication? Clinician (SIG) Name Name lidocaine Yes [id number] Apply with Univers 2% viscous 10-28 q-tip to ity o f 2 % 00:00: area of [place] solution 00 irritation Medic al every hour Branch as needed for pain clobetasoL Yes [id number] Apply to Univers 0.05 % 06 area(s) ity of cream 00:00: every 4 [place] 00 (four) Medical hours. Branch pravastatin Yes 10mg Take 10 mg Univers 10 mg 5-31 by mouth ity of tablet 09:36: at [place] [address] bedtime. Medical Branch amitriptyli Yes 10mg Take 10 mg Univers ne 10 mg 5-31 by mouth ity of tablet 09:36: at [place] [address] bedtime. Medical Branch ibuprofen Yes 600mg Take 600 Uni vers 600 mg 5-31 mg by ity of tablet 09:36: mouth [place] 57 every 6 Medical (six) Branch hours as needed. metFORMIN Yes 1000mg Take 1,000 Univers 1,000 mg 5-31 mg by ity of tablet 09:36: mouth 2 [place] [address] (two) Medical times Branch daily with meals. amLODIPine Yes 10mg Take 10 mg U nivers 10 mg 5-31 by mouth ity of tablet 09:36: daily. [place] [address] Medical Branch lisinopril Yes 40mg Take 40 mg U nivers 40 mg 5-31 by mouth ity of tablet 09:36: daily. [address] paroxetine 2017-0 Yes 10mg Take 10 mg U nivers (PAXIL) 10 5-31 by mouth ity o f mg tablet 09:36: daily. [address] Immunizations Ordered Filled Immunization Date Status Comments Shen e Immunization Name Name SARS-COV-2 COVID-19 2021-05-12 Completed Unive rsity of MODERNA 12+ YRS 00:00:00 [facility] ical VACCINE Branch SARS-COV-2 COVID-19 2021-04-14 Completed Unive rsity of MODERNA 12+ YRS [facility]:00:[facility] Vital Signs Vital Name Observation Time Observation Value Comments Source Systolic blood 2021-12-07 18:12:00 149 mm[Hg] Univer sity of pressure [facility] Diastolic blood 2021-12-07 18:12:00 90 mm[Hg] Unive rsity of pressure [facility] Heart rate 2021-12-07 18:12:00 87 /min [facility] Body temperature 2021-12-07 18:12:00 36.39 [facility] Res[facility] rate 2021-12-07 18:12:00 18 /min [facility] Body height 2021-12-07 18:12:00 175.3 cm [facility] Body weight 2021-12-07 18:12:00 110.678 kg [facility] BMI 2021-12-07 18:12:00 36.03 kg/m2 [facility] Procedures Procedure Date / Time Performed Performing Clinician Shen e POCT URINALYSIS AUTO 2021-12-07 18:35:00 Gerson Valenzuela [facility] Encounters Start End Encounter Admission Attending Care Care Encounter Source Date/Time Date/Time Type Type Clinicians Facility Department ID 2021-01-23 Emergency [facility] [id number] Univers [facility] 2021-01-21 Emergency [facility] [id number] Univers 01:10[facility]53 [facility] 2022-03-08 2022-03-08 Outpatient R STAN [facility] [id number] Univers 08:30:00 08:30:00 [facility] 2021-12-07 2021-12-07 Office [facility] [id number] Univers 13:00:00 14:26:17 Visit Rm, Adc Surg Spec Procedure [place] 3 [id number] ity [facility] [id number] [id number] [address] 2021-12-07 2021-12-07 [facility] [id number] Univers 13:00:00 14:26:17 [facility] 2021-12-07 2021-12-07 [facility] [id number] Univers 13:00:00 14:26:17 [facility] 2021-12-07 2021-12-07 [facility] [id number] Univers 13:00:00 [facility]00[facility] 2021-10-23 2021-10-23 Office [facility] [id number] Univers 14:30:00 14:35:17 Visit [facility] [id number] i ty of [facility] [place] [id number] [address] 2021-10-23 2021-10-23 [facility] [id number] Univers 14:30:00 14:35:17 [facility] 2021-10-23 2021-10-23 [facility] [id number] Univers 14:30:00 14:30:00 [facility] 2021-10-23 2021-10-23 Letter [facility] [id number] Univers 00:00:00 00:00:00 (Out) [facility] [id number] i ty of [place] [id number] Ri [facility] 204 [facility] 2021-10-23 2021-10-23 Orders Doctor GUY [id number] Univers 00:00:00 00:00:00 Only Unassigned, NISHANT [id number] ity of [place] [facility] 4.2.7.2.686 [place] [id number] [facility] [address] [place] 2021-05-13 2021-05-13 Nurse Cordelia Ace [id number] Univers 00:00:00 00:00:00 Triage NISHANT [id number] it y of HOSPITAL 4.2.7.2.686 [place] [phone] [facility] [address] [place] 2021-05-12 2021-05-12 Imm/Inj Vaccine, Ang Db Cbc Fam [facility] 1. 2.840.114 [id number] Univers 08:00:00 08:20:00 Visit Chucky Abreu [facility] [id number] ity of [place] 4.2.7.2.686 [place] GAGE?BLEA [id number] [facility] [address] [place] MEDICAL OFFICE BUILDING 2021-05-12 2021-05-12 Outpatient Denilson ABREU [facility] [id number] Univers 08:00:00 08:00:00 CHUCKY verduzco [facility] 2021-04-14 2021-04-14 Outpatient Denilson ABREU [facility] [id number] Univers 08:20:00 08:54:29 CHUCKY itant [facility] 2021-01-20 2021-01-20 Telephone Nurse, Manan [facility] 1.2.840.114 [id number] Univers 00:00:00 00:00:00 Db Urgent HEALTH [id number] ity of Care [place] 4.2.7.2.686 [place] GAGE?BLEA [phone] [facility] [address] [place] MEDICAL OFFICE BUILDING 2021-01-19 2021-01-19 Letter GU[place] 1.2.840.114 [id number] Univers 00:00:00 00:00:00 (Out) Susanne DILLARD [id number] it y of HOSPITAL 4.2.7.2.686 [place] [id number] [place] [address] Branch 2021-01-18 2021-01-18 Laboratory Only, Ang Db Test [facility] [id number] [id number] Univers 09:05:57 09:16:53 Only Brendan TaxiMe 350.1.13.10 ity [facility] 4.2.7.2.686 [place] Gage?Blea [id number] Ri dical [address] Medical Office Building 2021-01-18 2021-01-18 Outpatient R [facility] [id number] Univers 09:15:00 09:15:00 ity [facility] 2020-01-18 2020-01-18 Emergency [facility] [id number] 18:41:00 19:45:00 Lilibeth Oreilly [place] 350.1.13.10 [place] 4.2.7.2.686 [place] [id number] [id number] Results Test Description Test Time Test Comments Results Result Comments Source POCT URINALYSIS, INSTRUMENT 2021-12-07 18:36:00 Test Item Value Reference Range Interpretation Comme nts POCT U SP GRAV (test code = 3255) 1.030 mg/dl 1.005-1.025 A POCT PH U (test code = 3254) 5.5 mg/dl 5-8 POCT U LEUK EST (test code = 3263) neg Negative - Negative POCT U NIT (test code = 3262) neg Negative - Negative POCT U PROT (test code = 3259) Negative - Negative POCT U GLU (test code = 3256) Negative - Negative POCT U KETONE (test code = 3258) trace Negative - Negative POCT U UROBILI (test code = 3260) 0.2 mg/dl 0.2-1 POCT U BILI (test code = 3261) small Negative - Negative POCT U BLD (test code = 3257) neg Negative - Negative POCT U COLOR (test code = 3266) yellow POCT U APPEAR (test code = 3267) clear Lab Interpretation (test code = 65288-1) Abnormal [facility]
[2022-05-21] MEDS ORDERED: TDAP (DIPHTH,PERTUSS(ACELL),TET VAC) 0.5 ML VIAL IMVAC ONE (19:18)
--- NOTE | 2022-05-21 19:26 | ER ---
Nurse's Notes [facility] Name: Zachary Parker Jr Age: 46 yrs Sex: Male : 1975 Arrival Date: 05/21/2022 Time: 18:55 Bed IW3 Private MD: Diagnosis: Bitten by dog;Abrasion of right hand, initial encounter;Abrasion of right forearm, initial encounter Presentation: 05/21 19:01 Chief complaint: Patient states: right hand and forearm dog bite; not the first time [facility] dog has gotten out but first time dog has bitten; animal control was called and they say the dog is vaccinated. Coronavirus screen: Vaccine status: Patient reports receiving the 2nd dose of the covid vaccine. Client denies travel out of the [place] in the last 14 days. Ebola Screen: Patient negative for fever greater than or equal to 101.5 degrees Fahrenheit, and additional compatible Ebola Virus Disease symptoms Patient denies exposure to infectious person. Patient denies travel to an Ebola-affected area in the 21 days before illness onset. Initial Sepsis Screen: Does the patient meet any 2 criteria? No. Patient's initial sepsis screen is negative. Does the patient have a suspected source of infection?. Risk Assessment: Do you want to hurt yourself or someone else? Patient reports no desire to harm self or others. Onset of symptoms was May 21, 2022. 19:01 Method Of Arrival: Ambulatory [facility] 19:01 Acuity: DOROTHEA 3 jh5 Triage Assessment: 19:01 Bite description: bite sustained to right arm by a dog, animal information: [facility] vaccination(s) is current. General: Appears in no apparent distress. comfortable, well groomed, well developed, well nourished, Behavior is calm, cooperative, appropriate for age. Pain: Complains of pain in right arm. Historical: - PMHx: 19:01 Asthma; Diabetes - NIDDM; High Cholesterol; Hypertension; PTSD; restless leg; jh5 - PSHx: 19:01 hernia; jh5 - Immunization history:: Adult Immunizations up to date. - Social history:: Smoking status: Patient denies any tobacco usage or history of. Screenin:29 Abuse screen: Denies threats or abuse. Denies injuries from another. Nutritional [facility] screening: No deficits noted. Tuberculosis screening: No symptoms or risk factors identified. Assessment: 19:30 Derm: Skin is intact, Skin is pink, warm \T\ dry. normal. [facility] Vital Signs: 19:03 BP 177 / 86; Pulse 91; Resp 16; Temp 98.7; Pulse Ox 98% ; Weight 111.13 kg; Height 5 [facility] ft. 9 in. (175.26 cm); Pain 5/10; 19:03 Body Mass Index 36.18 (111.13 kg, 175.26 cm) [facility] ED Course: 18:55 Patient arrived in ED. am2 19:01 Triage completed. [facility] 19:01 Arm band placed on left wrist. [facility] 19:05 Alexy Ford PA is PHCP. cp 19:05 Alexander Benitez MD is Attending Physician. 19:29 Patient has correct armband on for positive identification. Bed in low position. Side [facility] rails up X 1. 19:29 No provider procedures requiring assistance completed. Patient did not have IV access [facility] during this emergency room visit. Administered Medications: 19:15 Drug: Tetanus-Diphtheria Toxoid Adult 0.5 ml {Hob Grinder: [employer] ([employer]). Exp: 5 02/09/2023. Lot #: [id number]. } Route: IM; Site: right deltoid; Medication: 19:30 Vaccine Information Statement (VIS) provided today. Questions and/or concerns [facility] addressed. VIS edition date: April 2022. Outcome: 19:25 Discharge ordered by . 19:29 Discharged to home ambulatory. [facility] 19:29 Condition: good 19:29 Discharge instructions given to patient, Instructed on discharge instructions, follow up and referral plans. medication usage, safety practices, Demonstrated understanding of instructions, follow-up care, medications, wound care, Prescriptions given X 1. 19:30 Patient left the ED. [facility] Signatures: Alexy Ford PA PA cp Moreno, Amanda am2 Eli Mitchell RN RN [facility]
--- NOTE | 2022-05-21 19:26 | EDPHYS ---
Physician Documentation [facility] Name: Zachary Parker Jr Age: 46 yrs Sex: Male : 1975 Arrival Date: 05/21/2022 Time: 18:55 Bed IW3 Private MD: ED Physician Alexander Benitez HPI: 05/21 19:09 This 46 yrs old Male presents to ER via Ambulatory with complaints of Dog Bite. cp 19:09 The patient was bitten on the right hand and distal right forearm. Onset: The cp symptoms/episode began/occurred today. Animal information: Animal control has been notified, neighbor's dog. Secondary to the bite the patient reports multiple abrasions noted to dorsum right hand and distal right forearm. Associated signs and symptoms: Pertinent negatives: bony tenderness, suspected foreign body. Historical: - PMHx: 19:01 Asthma; Diabetes - NIDDM; High Cholesterol; Hypertension; PTSD; restless leg; jh5 - PSHx: 19:01 hernia; jh5 - Immunization history:: Adult Immunizations up to date. - Social history:: Smoking status: Patient denies any tobacco usage or history of. ROS: 19:15 Constitutional: Negative for body aches, chills, fever, poor PO intake. cp 19:15 Cardiovascular: Negative for chest pain, edema, palpitations. cp 19:15 Respiratory: Negative for cough, shortness of breath, wheezing. 19:15 Abdomen/GI: Negative for abdominal pain, nausea, vomiting, and diarrhea. 19:15 Skin: Positive for abrasion(s), ecchymosis, swelling, of the dorsal side right hand and distal right forearm. 19:15 All other systems are negative. Exam: 19:18 Constitutional: The patient appears in no acute distress, alert, awake, non-toxic, well cp developed, well nourished. 19:18 Head/Face: Normocephalic, atraumatic. cp 19:18 Chest/axilla: Inspection: normal. 19:18 Cardiovascular: Rate: normal, Pulses: Pulses are 2+ in right radial artery. 19:18 Respiratory: the patient does not display signs of respiratory distress, Respirations: normal, no use of accessory muscles, no retractions, labored breathing, is not present. 19:18 Skin: injury, bite(s), superficial, appear as abrasions with small superficial skin avulsion noted dorsal side right hand, that can be described as minimal bleeding noted. Vital Signs: 19:03 BP 177 / 86; Pulse 91; Resp 16; Temp 98.7; Pulse Ox 98% ; Weight 111.13 kg; Height 5 5 ft. 9 in. (175.26 cm); Pain 5/10; 19:03 Body Mass Index 36.18 (111.13 kg, 175.26 cm) [facility] MDM: 19:09 Patient medically screened. cp 19:25 Data reviewed: vital signs, nurses notes. cp 19:25 I considered the following discharge prescriptions or medication management in the cp emergency department Medications were administered in the Emergency Department. See MAR. Test considered but Not performed: X-ray: right hand and right forearm. Care significantly affected by the following chronic conditions: Diabetes, Hypertension. Counseling: I had a detailed discussion with the patient and/or guardian regarding: the historical points, exam findings, and any diagnostic results supporting the discharge/admit diagnosis, wound care. 05/21 19:09 Order name: Wound dressing; Complete Time: 19:11 cp Administered Medications: 19:15 Drug: Tetanus-Diphtheria Toxoid Adult 0.5 ml {Harbormaster: [employer] ([employer]). Exp: jh5 02/09/2023. Lot #: [id number]. } Route: IM; Site: right deltoid; Disposition Summary: 05/21/22 19:25 Discharge Ordered Location: Home cp Problem: new cp Symptoms: are unchanged cp Condition: Stable cp Diagnosis - Bitten by dog cp - Abrasion of right hand, initial encounter cp - Abrasion of right forearm, initial encounter cp Followup: cp - With: Private Physician - When: 1 - 2 days - Reason: Worsening of condition Discharge Instructions: - Discharge Summary Sheet cp - Abrasion cp - Animal Bite, Adult cp Forms: - Medication Reconciliation Form cp - Thank You Letter cp - Antibiotic Education cp - Prescription Opioid Use cp Prescriptions: - Augmentin 875-125 mg Oral Tablet - take 1 tablet by ORAL route every 12 hours for 10 days; 20 tablet; Refills: 0, cp Product Selection Permitted Signatures: Alexy Ford PA PA cp Rees, Jessica RN RN 5
[2022-05-21 19:56] VITALS: BP 177/86; TEMP 98.7; O2SAT 98
== END 2022-05-21 19:30 | disposition home or self-care (01) ==
LOC: ER 18:54
DX: S60.511A Abrasion of right hand, initial encounter (principal); S50.811A Abrasion of right forearm, initial encounter; W54.0XXA Bitten by dog, initial encounter; Z23 Encounter for immunization; I10 Essential (primary) hypertension
CPT/HCPCS: 90471; 99283